=== PATIENT | male | born 1980 | race Caucasian/White ===

== ENCOUNTER 2023-02-19 23:38 | Emergency (ER) | payer MEDICAID ==
[~2023-02-19] VITALS: Ht 167.6 cm; Wt 87.0 kg
[2023-02-19 23:42] VITALS: BP 131/83; O2SAT 96
[2023-02-19] MEDS ORDERED: LIDOCAINE HCL/PF 1% 10 MG/ML 5ML VIAL INFIL ONE (23:45)
[2023-02-19] MEDS ORDERED: BACITRACIN ZINC OINT UDPKT TOP ONE (23:45)
[2023-02-19] MEDS ORDERED: TETANUS, DIPHTHERIA, PERTUSSIS VAC/PF 0.5ML (>10YR OLD) IM ONE (23:45)
[2023-02-20 03:35] VITALS: PULSE 75; RESP 18; TEMP 98.4
== END 2023-02-20 03:36 | disposition home or self-care (01) ==
LOC: ER 23:42
DX: S01.81XA Laceration without foreign body of other part of head, initial encounter (principal); Z20.822 Contact with and (suspected) exposure to COVID-19; X58.XXXA Exposure to other specified factors, initial encounter; Y93.89 Activity, other specified; Y92.89 Other specified places as the place of occurrence of the external cause; Y99.8 Other external cause status
CPT/HCPCS: 99285; 12013; 70450; 71045; 87426; 70486; 90715; 90471; C9803; J3490